=== PATIENT | female | born 1985 ===

== ENCOUNTER 2020-11-10 09:12 | Inpatient (IN) | payer OTHER ==
[~2020-11-10] VITALS: Ht 165.1 cm; Wt 85.0 kg
[2020-11-15] VITALS (56 sets, daily range): BP systolic 103–148; BP diastolic 55–100; PULSE 64–101; TEMP 97.6–99.1
--- NOTE | 2020-11-15 06:40 | NUR ---
0643 PATIENT AMBULATES ONTO UNIT WITH SUPPORT PERSON. PT CHANGES INTO GOWN. FHR MONITOR/TOCO PLACED. INDUCTION OF LABOR FOR IUGR AND PLAN OF CARE DISCUSSED. PT VERBALIZES UNDERSTANDING. PT REPORTS NO VAGINAL BLEEDING/NO LEAKING OF FLUID, NO DECREASED MOVEMENT, AND NO REGULAR CONTRACTIONS. ASSESSMENT COMPLETED. CONSENTS SIGNED. PACKET GIVEN AND QUESTIONS ANSWERED. 0710 IV STARTED IN LEFT HAND. BLOOD OBTAINED AND SENT TO LAB. LR INFUSING. 0736 PITOCIN STARTED AT 2mu/hr PER PROTOCOL.
[2020-11-15] MEDS ORDERED: PRENATAL TABLET PO (07:12)
[2020-11-15] MEDS ORDERED: FERROUSGLUC256MG (07:12)
[2020-11-15 07:21] LABS: BASO % 0.3 % (0.0-2.0); EOS # 0.2 (0.0-0.7); EOS % 1.9 % (0-4.0); HEMOGLOBIN 11.9 g/dl (12.5-16.0); LYMPH # 2.4 (1.2-3.4); LYMPH % 20.1 % (20.0-51.0); MEAN CELL VOLUME 88 fl (80.0-100.0); MEAN CORPUSCULAR HEMOGLOBIN 30 pg (27.0-31.0); MEAN CORPUSCULAR HGB CONC 34 g/dl (33.0-37.0); MEAN PLATELET VOLUME 10.9 fl (7.4-10.4); MONO # 1.1 (0.1-0.6); PLATELET COUNT 279 K/mm3 (130-400); RED BLOOD COUNT 3.96 M/mm3 (4.10-5.30); REDCELL DISTRIBUTION WIDTH-CV 14.5 % (11.5-14.5)
[2020-11-15 07:30] LABS: HEMATOCRIT 34.9 % (37.0-47.0)
--- NOTE | 2020-11-15 10:00 | NUR ---
PT REPOSITIONED AND SITTING UPRIGHT FOR EPIDURAL PLACEMENT. C.STUB TRADE ECONOMIST AT BEDSIDE. 1006 SINGLE SHOT GIVEN. PT TOLERATED WELL. PLAN OF CARE AND SAFETY PRECAUTIONS DISCUSSED. PT REPOSITIONED. VERBALIZES UNDERSTANDING.
--- NOTE | 2020-11-15 11:07 | NUR ---
1045 PT REPOSITIONED. THIS RN AT BEDSIDE 1046 DR JARA AT BEDSIDE ASSESSING FHR STRIP. SVE /-[address] JARA. 1047 AROM. CLEAR FLUID NOTED. IUPC PLACED. 1100 WAGNER CATHETER PLACED. RETURN OF YELLOW/CLEAR URINE. 10CC INSTILLED INTO BALLOON. SECURED TO PT'S THIGH. PATIENT WEDGED RIGHT WITH PEANUT BALL. PATIENT TOLERATES PROCEDURE WELL. PLAN OF CARE DISCUSSED. PATIENT VERBALIZES UNDERSTANDING.
--- NOTE | 2020-11-15 15:30 | NUR ---
1530 DR JARA AT BEDSIDE ASSESSING FHR STRIP. SVE /-[address] JARA. DISCUSSES POTENTIAL OF C SECTION. PT VERBALIZES UNDERSTANDING. PT REPOSITIONED IN LEFT STIRRUP WEDGED RIGHT.
--- NOTE | 2020-11-15 16:20 | NUR ---
FHR BASELINE 115 BPM RECURRENT LATES NOTED. PT REPOSITIONED 1705 DR JARA AT BEDSIDE ASSESSING PT AND FHR STRIP. SVE PER PHYSICIAN /-. DISCUSSION OF C SECTION AT THIS TIME. PT AGREES WITH PLAN OF CARE. PITOCIN OFF AT THIS TIME. PT PREPPED FOR C SECTION. 1713 PT OFF MONITOR AND TO OR VIA BED.
[2020-11-16 04:15] VITALS: BP 103/62; PULSE 93; TEMP 98.1
[2020-11-16 07:07] VITALS: BP 98/57; PULSE 85; TEMP 97.3
--- NOTE | 2020-11-16 08:20 | NUR ---
Assisted out of bed for first time post surgery. Ambulates to bathroom with much coaching, standby assist. Mohr catheter removed. Alissa care provided. C/O feeling lightheaded upon rising from toilet. Assisted back to bed, sitting at side of bed. Will attempt ambulating in hallways following breakfast.
[2020-11-16] MEDS ORDERED: MOTRIN 800800 MG/TAB PO (08:35)
[2020-11-16] MEDS ORDERED: PERCOCET 325 MG1 TA2 PO (08:35)
--- NOTE | 2020-11-16 10:07 | NUR ---
Initial visit; Parents thanked Wood Turning Lathe Operator for offering congratulations and God's blessings for the of their son. Wood Turning Lathe Operator thanked family for choosing [facility].
[2020-11-16 11:05] VITALS: BP 101/55; PULSE 83; TEMP 98.2
--- NOTE | 2020-11-16 11:12 | NUR ---
Patient verbalizes plan to take a nap until noon.
--- NOTE | 2020-11-16 11:41 | NUR ---
Ambulating in hallways independently.
--- NOTE | 2020-11-16 15:26 | NUR ---
Set up with breast pump, instructed on use.
[2020-11-16 15:30] VITALS: BP 130/69; PULSE 89; TEMP 98.3
[2020-11-16 21:00] VITALS: BP 108/65; PULSE 97; TEMP 98.8
[2020-11-17 07:50] VITALS: BP 110/72; PULSE 91; TEMP 98.6
[2020-11-17 16:10] VITALS: BP 112/64; PULSE 80; TEMP 98.4
[2020-11-17 21:35] VITALS: BP 108/68; PULSE 86; TEMP 98
[2020-11-18 08:15] VITALS: BP 104/60; PULSE 86; TEMP 98.3
--- NOTE | 2020-11-18 10:28 | NUR ---
Ambulates the nurses station, tolerates well. Percocet 5/325 mg given as ordered.
[2020-11-18 15:45] VITALS: BP 113/74; PULSE 93; TEMP 98.1
--- NOTE | 2020-11-18 15:45 | NUR ---
Percocet 5/325 mg one given per request and as ordered.
--- NOTE | 2020-11-18 18:35 | NUR ---
PT OFF UNIT VIA WHEELCHAIR, HOLDING BABY WITH SPOUSE FOR HOME.
== END 2020-11-18 18:35 | disposition home or self-care (01) | DRG 788 ==
LOC: OB 09:12 → LDR 11-15 06:35 → OB 11-15 06:35
PROVIDERS: ADMIT Obstetrics & Gynecology
PROC: 10D00Z1 Extraction of Products of Conception, Low, Open Approach (ICD-10-PCS; principal; 2020-11-15)
PROC: 10907ZC Drainage of Amniotic Fluid, Therapeutic from Products of Conception, Via Natural or Artificial Opening (ICD-10-PCS; 2020-11-15)
PROC: 3E033VJ Introduction of Other Hormone into Peripheral Vein, Percutaneous Approach (ICD-10-PCS; 2020-11-15)
DX: O36.5930 Maternal care for other known or suspected poor fetal growth, third trimester, not applicable or unspecified (principal); O62.0 Primary inadequate contractions; O75.89 Other specified complications of labor and delivery; O90.81 Anemia of the puerperium; D64.9 Anemia, unspecified; Z20.822 Contact with and (suspected) exposure to COVID-19; Z3A.38 38 weeks gestation of pregnancy; Z37.0 Single live birth
CPT/HCPCS: J0690; J1100; J1885; J2405; J2590; J7120

== ENCOUNTER 2023-09-30 15:45 | Outpatient (RCR) | payer OTHER ==
[~2023-09-30 15:45] MED LIST: FERROUSGLUC256MG; MAGNESIUM500 MG PO; MOTRIN 800800 MG/TAB PO; PERCOCET 325 MG1 TA2 PO; PRENATAL TABLET PO; TYLENOL 500MG500 MG PO
== END 2023-10-02 | disposition home or self-care (01) ==
LOC: WSPT
DX: M72.2 Plantar fascial fibromatosis (principal); M25.562 Pain in left knee; M25.561 Pain in right knee; M54.50 Low back pain, unspecified; G89.29 Other chronic pain

== ENCOUNTER 2023-10-08 14:52 | Outpatient (RCR) | payer OTHER | END 2023-11-02 | disposition home or self-care (01) | LOC: WSPT | DX: M72.2 Plantar fascial fibromatosis (principal); M54.50 Low back pain, unspecified; M25.562 Pain in left knee; G89.29 Other chronic pain ==